=== PATIENT | male | born 1980 | race Caucasian/White ===

== ENCOUNTER 2021-07-16 09:28 | Emergency (ER) | payer OTHER ==
[~2021-07-16] VITALS: Ht 188 cm; Wt 171.2 kg
--- OUTSIDE RECORDS SUMMARY | 2021-07-16 09:30 | XMS ---
PreManage Notification: BOSTON CORREA [employer] Events No recent Security Events currently on file CRITERIA MET - [facility] CARE PROVIDERS There are no care providers on record at this time. Amy has no Care Guidelines for this patient. Fredo VISIT COUNT (12 MO.) 1 [facility]AN Moran TOTAL 1 NOTE: Visits indicate total known visits. ED/UCC VISIT TRACKING (12 MO.) 07/16/2021 09:29 [facility] OR TYPE: Emergency COMPLAINT: - R LEG PAIN/NO INJURY INPATIENT VISIT TRACKING (12 MO.) No inpatient visits to display in this time frame [email or web address]
[2021-07-16] MEDS ORDERED: IBUPROFEN800 MG PO (09:53)
[2021-07-16] MEDS ORDERED: TRIAMTERENE-HC1 EAC1 PO (09:53)
[2021-07-16] MEDS ORDERED: ELIQUIS5 M1 PO (15:31)
== END 2021-07-16 15:47 | disposition home or self-care (01) ==
LOC: ED 09:28
DX: I80.01 Phlebitis and thrombophlebitis of superficial vessels of right lower extremity (principal); I10 Essential (primary) hypertension; Z88.0 Allergy status to penicillin; Z88.2 Allergy status to sulfonamides; Z91.013 Allergy to seafood; Z79.899 Other long term (current) drug therapy
CPT/HCPCS: 93971; 99283-25

== ENCOUNTER 2021-10-20 13:08 | Emergency (ER) | payer OTHER ==
[~2021-10-20] VITALS: Ht 188 cm; Wt 167.8 kg
[~2021-10-20 13:08] MED LIST: ELIQUIS5 M1 PO; IBUPROFEN800 MG PO; TRIAMTERENE-HC1 EAC1 PO
[2021-10-20] MEDS ORDERED: ROSUVASTATIN CA10 MG PO (13:24)
[2021-10-20] MEDS ORDERED: DOXYCYCLINE HY100 MG PO (16:17)
[2021-10-20] MEDS ORDERED: PREDNISONE20 MG PO (16:17)
[2021-10-20] MEDS ORDERED: BENZONATATE100 MG PO (16:17)
[2021-10-20] MEDS ORDERED: VENTOLIN HFA18 GM INH (16:17)
--- NOTE | 2021-10-20 16:55 | EKG ---
[facility] [address] [facility] [place] [address] Signed Normal sinus rhythm Normal ECG No previous ECGs available Confirmed by OSMIN DC MD ([id number] on 10/20/2021 4:55:18 PM Electronically Signed By: OSMIN DC MD 10/20/21 1655 PATIENT NAME: BOSTON CORREA Electrocardiogram DATE OF : 84 PHYSICIAN: OSMIN DC MD REPORT #: [id number] REPORT IS CONFIDENTIAL AND NOT TO BE RELEASED WITHOUT AUTHORIZATION
== END 2021-10-20 16:28 | disposition home or self-care (01) ==
LOC: ED 13:08
DX: J40 Bronchitis, not specified as acute or chronic (principal); I10 Essential (primary) hypertension; Z20.822 Contact with and (suspected) exposure to COVID-19; Z88.0 Allergy status to penicillin; Z88.2 Allergy status to sulfonamides; Z91.013 Allergy to seafood; Z79.899 Other long term (current) drug therapy
CPT/HCPCS: 36415; 71046; 80053; 83735; 84484; 85025; 93005; 93010; 94640; 99285-25; C9803; J1100; U0003

== ENCOUNTER 2022-01-06 06:24 | Emergency (ER) | payer OTHER ==
[~2022-01-06] VITALS: Ht 188 cm; Wt 177.0 kg
[~2022-01-06 06:24] MED LIST changes: +BENZONATATE100 MG PO; +DOXYCYCLINE HY100 MG PO; +PREDNISONE20 MG PO; +ROSUVASTATIN CA10 MG PO; +VENTOLIN HFA18 GM INH
[2022-01-06] MEDS ORDERED: FUROSEMIDE40 MG PO (06:39)
== END 2022-01-06 08:35 | disposition home or self-care (01) ==
LOC: ED 06:24
DX: Z77.098 Contact with and (suspected) exposure to other hazardous, chiefly nonmedicinal, chemicals (principal); I10 Essential (primary) hypertension; Z88.0 Allergy status to penicillin; Z91.013 Allergy to seafood; Z88.2 Allergy status to sulfonamides; Z79.899 Other long term (current) drug therapy
CPT/HCPCS: 82375; 99283; A9270